=== PATIENT | male | born 1965 | race Caucasian/White ===

== ENCOUNTER 2020-12-12 12:47 | Inpatient (IN) ==
[2020-12-12] MEDS ORDERED: *HR* LORazepam 2 MG/ML VIAL IVP PRN ×3 (16:07)
[2020-12-12] MEDS ORDERED: Ondansetron 4 MG/2 ML VIAL IVP PRN (16:08)
[2020-12-12] MEDS ORDERED: Acetaminophen 325 MG TABLET PO PRN (16:08)
[2020-12-12] MEDS ORDERED: Naloxone 0.4 MG/ML INJ IVP PRN (16:08)
[2020-12-12] MEDS ORDERED: MOM Conc 10 ML UD.LIQ PO PRN (16:08)
[2020-12-12] MEDS ORDERED: Melatonin 3 MG TABLET PO PRN (16:08)
[2020-12-12] MEDS ORDERED: Mag Hydrox/Al Hydrox/Simeth 30 ML UDC PO PRN (16:08)
[2020-12-12] MEDS ORDERED: Perflutren Lipid Microsphere 1.3 ML in 0.9 % Sodium Chloride 8.7 ML IVP PRN (16:11)
[2020-12-12] MEDS: niCARdipine 20 MG/200 ML MLS IVC SCH ×4 (16:19→23:02)
[2020-12-12 16:51] LABS: Troponin I 0.06 ng/mL (< 0.04)
[2020-12-12 17:13] LABS: BUN/Creatinine Ratio 9 (6-26); Blood Urea Nitrogen 9 mg/dL (6-20); Calcium 9.1 mg/dL (8.6-10.3); Carbon Dioxide 26 mEq/L (23-29); Chloride 94 mEq/L (98-107); Glucose 136 mg/dL (70-105); Osmolality,Calculated 275 (280-300); Potassium 3.3 mEq/L (3.5-5.1); Sodium 132 mEq/L (136-145); eGFR For African Americans > 60 (> 60); eGFR For Non-African Americans > 60 (> 60)
[2020-12-13 01:21] LABS: Basophils % 0.4 %; Eosinophils # 0.1 K/mcL (0.0-0.6); Eosinophils % 1.5 %; Hematocrit 39.4 % (37.5-50.1); Hemoglobin 14.4 g/dL (12.9-16.9); Immature Granulocytes % 0.3 % (0-4); Lymphocytes # 1.2 K/mcL (0.6-4.6); Lymphocytes % 14.6 %; Mean Corpuscular HGB Conc 36.5 g/dL (31.6-35.5); Mean Corpuscular Hemoglobin 32.2 pg (28.0-33.3); Mean Corpuscular Volume 88.1 fL (83.0-100.0); Mean Platelet Volume 10.6 fL (9.4-12.4); Monocytes # 1.2 K/mcL (0.0-1.3); Monocytes % 15.4 %; Neutrophils # 5.4 K/mcL (1.6-8.9); Platelet Count 187 K/mcL (140-400); Red Blood Count 4.47 M/mcL (4.19-5.50); Red Cell Distribution Width 11.7 % (11.5-14.5); Segmented Neutrophils % 67.8 %
[2020-12-13 01:38] LABS: Alanine Aminotransferase 10 Units/L (7-52); Albumin/Globulin Ratio 1.5 (1.1-2.2); Alkaline Phosphatase 49 Units/L (34-104); Aspartate Amino Transferase 13 Units/L (13-39); BUN/Creatinine Ratio 12 (6-26); Bilirubin,Direct 0.1 mg/dL (0.0-0.2); Bilirubin,Indirect 0.5 mg/dL (0.0-1.0); Bilirubin,Total 0.6 mg/dL (0.3-1.0); Blood Urea Nitrogen 12 mg/dL (6-20); Calcium 8.7 mg/dL (8.6-10.3); Carbon Dioxide 25 mEq/L (23-29); Chloride 97 mEq/L (98-107); Chol/HDL Ratio 2.8 (0-4.9); Cholesterol 199 mg/dL (< 200); Globulin 2.7 g/dL (2.4-3.5); Glucose 130 mg/dL (70-105); HDL Cholesterol 72 mg/dL (40-59); LDL Cholesterol,Calculated 117 mg/dL (< 100); Magnesium 1.8 mg/dL (1.6-2.6); Osmolality,Calculated 276 (280-300); Potassium 3.2 mEq/L (3.5-5.1); Sodium 132 mEq/L (136-145); Total Protein 6.7 g/dL (6.4-8.9); Triglycerides 52 mg/dL (< 150); eGFR For African Americans > 60 (> 60); eGFR For Non-African Americans > 60 (> 60)
[2020-12-13 01:51] LABS: Thyroid Stimulating Hormone 2.788 mcIU/mL (0.340-5.600)
[2020-12-13 02:35] LABS: Estimated Average Glucose 85 mg/dl; Hemoglobin A1C 4.6 %
[2020-12-13] MEDS: niCARdipine 20 MG/200 ML MLS IVC SCH ×7 (02:35→22:20)
[2020-12-13] MEDS: Vitamin B Complex/Vit C/Vit E 1 EACH TABLET PO SCH (07:32)
[2020-12-13] MEDS: Folic Acid 1 MG TABLET PO SCH (07:32)
[2020-12-13] MEDS: Thiamine (B-1) 100 MG TABLET PO SCH (07:32)
[2020-12-13] MEDS ORDERED: amLODIPine 5 MG TABLET PO SCH (09:00)
[2020-12-13] MEDS: Aspirin Enteric Coated 81 MG Tablet PO SCH (09:18)
[2020-12-13] MEDS ORDERED: amLODIPine 5 MG TABLET PO ONE (12:08)
[2020-12-13] MEDS ORDERED: *HR* LORazepam 2 MG/ML VIAL IVP ONE (16:55)
[2020-12-14] MEDS: niCARdipine 20 MG/200 ML MLS IVC SCH ×8 (01:49→16:49)
[2020-12-14 06:46] LABS: BUN/Creatinine Ratio 10 (6-26); Blood Urea Nitrogen 10 mg/dL (6-20); Calcium 8.9 mg/dL (8.6-10.3); Carbon Dioxide 26 mEq/L (23-29); Chloride 101 mEq/L (98-107); Glucose 105 mg/dL (70-105); Osmolality,Calculated 277 (280-300); Potassium 3.4 mEq/L (3.5-5.1); Sodium 134 mEq/L (136-145); eGFR For African Americans > 60 (> 60); eGFR For Non-African Americans > 60 (> 60)
[2020-12-14] MEDS: Vitamin B Complex/Vit C/Vit E 1 EACH TABLET PO SCH (07:21)
[2020-12-14] MEDS: Folic Acid 1 MG TABLET PO SCH (07:21)
[2020-12-14] MEDS: Thiamine (B-1) 100 MG TABLET PO SCH (07:21)
[2020-12-14] MEDS: Aspirin Enteric Coated 81 MG Tablet PO SCH (07:21)
[2020-12-14] MEDS: amLODIPine 5 MG TABLET PO SCH (07:22)
[2020-12-14] MEDS ORDERED: lisinopriL 10 MG TABLET PO SCH (09:00)
[2020-12-14] MEDS ORDERED: *HR* LORazepam 2 MG/ML VIAL IVP ONE (16:55)
[2020-12-14] MEDS: niCARdipine 40 MG/200 ML MLS IVC SCH ×2 (18:18→21:31)
[2020-12-15] MEDS: niCARdipine 40 MG/200 ML MLS IVC SCH ×4 (01:02→18:06)
[2020-12-15 06:24] LABS: BUN/Creatinine Ratio 11 (6-26); Blood Urea Nitrogen 11 mg/dL (6-20); Calcium 9.1 mg/dL (8.6-10.3); Carbon Dioxide 25 mEq/L (23-29); Chloride 103 mEq/L (98-107); Glucose 101 mg/dL (70-105); Magnesium 1.7 mg/dL (1.6-2.6); Osmolality,Calculated 280 (280-300); Potassium 3.7 mEq/L (3.5-5.1); Sodium 135 mEq/L (136-145); eGFR For African Americans > 60 (> 60); eGFR For Non-African Americans > 60 (> 60)
[2020-12-15 07:44] LABS: Bilirubin,Urine Negative (Negative); Blood,Urine Negative (Negative); Clarity,Urine Clear (Clear); Color,Urine Colorless (Yellow); Glucose,Urine (UA) Normal (Normal); Ketones,Urine Negative (Negative); Leukocyte Esterase,Urine Negative (Negative); Nitrite,Urine Negative (Negative); PH,Urine 6.5 pH Units (5.0-8.0); Protein,Urine Negative (Neg-Trace); Specific Gravity,Urine 1.008 (1.010-1.025); Urobilinogen,Urine Normal (Normal)
[2020-12-15 07:55] LABS: Sodium, Urine 102.3 mEq/L
[2020-12-15] MEDS: Aspirin Enteric Coated 81 MG Tablet PO SCH (08:50)
[2020-12-15] MEDS: Vitamin B Complex/Vit C/Vit E 1 EACH TABLET PO SCH (08:50)
[2020-12-15] MEDS: Folic Acid 1 MG TABLET PO SCH (08:50)
[2020-12-15] MEDS: Thiamine (B-1) 100 MG TABLET PO SCH (08:50)
[2020-12-15] MEDS: amLODIPine 5 MG TABLET PO SCH (08:50)
[2020-12-15] MEDS: carvediloL 25 MG TABLET PO SCH ×2 (08:50→16:58)
[2020-12-16 02:05] LABS: BUN/Creatinine Ratio 13 (6-26); Blood Urea Nitrogen 15 mg/dL (6-20); Calcium 8.8 mg/dL (8.6-10.3); Carbon Dioxide 26 mEq/L (23-29); Chloride 103 mEq/L (98-107); Glucose 111 mg/dL (70-105); Osmolality,Calculated 280 (280-300); Potassium 3.6 mEq/L (3.5-5.1); Sodium 134 mEq/L (136-145); eGFR For African Americans > 60 (> 60); eGFR For Non-African Americans > 60 (> 60)
[2020-12-16] MEDS: Thiamine (B-1) 100 MG TABLET PO SCH (07:12)
[2020-12-16] MEDS: Vitamin B Complex/Vit C/Vit E 1 EACH TABLET PO SCH (07:12)
[2020-12-16] MEDS: Folic Acid 1 MG TABLET PO SCH (07:12)
[2020-12-16] MEDS: Aspirin Enteric Coated 81 MG Tablet PO SCH (07:12)
[2020-12-16] MEDS: carvediloL 25 MG TABLET PO SCH (07:12)
[2020-12-16] MEDS: amLODIPine 5 MG TABLET PO SCH (07:12)
[2020-12-16 11:09] VITALS: BP 164/96
== END 2020-12-16 14:06 | disposition home or self-care (01) | DRG 305 ==
LOC: 2NNU → SUATTDRO 15:32
PROVIDERS: ADMIT Internal Medicine; ATTEND Internal Medicine

== ENCOUNTER 2021-03-14 16:02 | Inpatient (IN) ==
[2021-03-14 16:59] LABS: Basophils % 0.1 %; Lymphocytes % 5.5 %
[2021-03-14 17:00] LABS: Hematocrit 35.4 % (37.5-50.1); Hemoglobin 13.7 g/dL (12.9-16.9); Immature Granulocytes % 0.7 % (0-4); Lymphocytes # 0.8 K/mcL (0.6-4.6); Mean Corpuscular Hemoglobin 32.5 pg (28.0-33.3); Mean Corpuscular Volume 83.9 fL (83.0-100.0); Mean Platelet Volume 10.1 fL (9.4-12.4); Monocytes # 0.9 K/mcL (0.0-1.3); Monocytes % 6.1 %; Neutrophils # 12.3 K/mcL (1.6-8.9); Platelet Count 220 K/mcL (140-400); Red Blood Count 4.22 M/mcL (4.19-5.50); Red Cell Distribution Width 12.2 % (11.5-14.5); Segmented Neutrophils % 87.6 %
[2021-03-14] MEDS ORDERED: 0.9 % Sodium Chloride 1,000 ML IVC ONE (17:19)
[2021-03-14] MEDS ORDERED: Thiamine (B-1) 100 MG, Folic Acid 1 MG, MVI, adult with vitamin K 10 ML in 0.9 % Sodi... IVPB ONE (17:30)
[2021-03-14 17:55] LABS: Bacteria,Urine Few per hpf (None-Few); Bilirubin,Urine Negative (Negative); Blood,Urine Small (Negative); Clarity,Urine Clear (Clear); Color,Urine Yellow (Yellow); Glucose,Urine (UA) Normal (Normal); Hyaline Casts,Urine Few per lpf (None Seen); Ketones,Urine Negative (Negative); Leukocyte Esterase,Urine Negative (Negative); Mucus,Urine Few per lpf (None-Few); Nitrite,Urine Negative (Negative); PH,Urine 6.5 pH Units (5.0-8.0); Protein,Urine Trace mg/dL (Neg-Trace); Specific Gravity,Urine 1.019 (1.010-1.025); Urobilinogen,Urine Normal (Normal); WBC,Urine 0-3 per hpf (0-3)
[2021-03-14 17:59] LABS: Alanine Aminotransferase 203 Units/L (7-52); Albumin 3.2 g/dL (3.5-5.7); Alkaline Phosphatase 159 Units/L (34-104); Aspartate Amino Transferase 335 Units/L (13-39); BUN/Creatinine Ratio 10 (6-26); Bilirubin,Direct 3.2 mg/dL (0.0-0.2); Bilirubin,Indirect 2.7 mg/dL (0.0-1.0); Bilirubin,Total 5.9 mg/dL (0.3-1.0); Blood Urea Nitrogen 13 mg/dL (6-20); Calcium 8.5 mg/dL (8.6-10.3); Carbon Dioxide 20 mEq/L (23-29); Chloride 65 mEq/L (98-107); Ethanol 43 mg/dL (Less than 10); Globulin 3.1 g/dL (2.4-3.5); Glucose 94 mg/dL (70-105); Lipase 181 Units/L (11-82); Osmolality,Calculated 212 (280-300); Potassium 4.3 mEq/L (3.5-5.1); Sodium 101 mEq/L (136-145); Total Protein 6.3 g/dL (6.4-8.9); Troponin I 0.04 ng/mL (< 0.04); eGFR For African Americans > 60 (> 60); eGFR For Non-African Americans 55 (> 60)
[2021-03-14 18:02] LABS: Amphetamine Screen,Urine Negative ng/mL (Cutoff=1000); Barbiturate Screen,Urine Negative ng/mL (Cutoff=200); Benzodiazepines Screen,Urine Negative ng/mL (Cutoff=200); Cannabinoid Screen,Urine Negative ng/mL (Cutoff = 50); Cocaine Screen,Urine Negative ng/mL (Cutoff= 300); Opiate Screen,Urine Negative ng/mL (Cutoff=300); Phencyclidine Screen,Urine Negative ng/mL (Cutoff=25)
[2021-03-14] MEDS ORDERED: Isovue-370 500 ML BOTTLE IVP ONE (18:20)
[2021-03-14 18:42] LABS: INR 1.4; Prothrombin Time 15.4 Seconds (9.4-12.1)
[2021-03-14 18:42] LABS: Mean Corpuscular HGB Conc 38.7 g/dL (31.6-35.5)
[2021-03-14 20:44] LABS: VBG HCO3 20 mEq/L (21-27); VBG PCO2 25 mmHg (41-51); VBG PH 7.52 pH Units (7.32-7.42); VBG PO2 90 mmHg (25-50)
[2021-03-15] MEDS ORDERED: Pantoprazole 80 MG in 0.9 % Sodium Chloride 50 ML IVPB ONE (01:41)
[2021-03-15] MEDS ORDERED: Naloxone 0.4 MG/ML INJ IVP PRN (01:54)
[2021-03-15] MEDS ORDERED: Piperacillin/Tazobactam 3.375 GM in 0.9 % Sodium Chloride Mini Bag 100 ML IVPB SCH (02:07)
[2021-03-15] MEDS ORDERED: *HR* LORazepam 2 MG/ML VIAL IVP PRN ×2 (03:34)
[2021-03-15] MEDS ORDERED: 0.9 % Sodium Chloride 1,000 ML IVC SCH (03:45)
[2021-03-15] MEDS: *HR* Heparin 5,000 UNIT/ML VIAL SQ SCH ×3 (06:11→17:58)
[2021-03-15] MEDS: Piperacillin/Tazobactam 3.375 GM in 0.9 % Sodium Chloride Mini Bag 100 ML IVPB SCH ×3 (06:12→21:44)
[2021-03-15 07:12] LABS: Troponin I 0.05 ng/mL (< 0.04)
[2021-03-15 07:13] LABS: Alanine Aminotransferase 152 Units/L (7-52); Albumin 2.7 g/dL (3.5-5.7); Albumin/Globulin Ratio 1.2 (1.1-2.2); Alkaline Phosphatase 157 Units/L (34-104); Aspartate Amino Transferase 263 Units/L (13-39); BUN/Creatinine Ratio 9 (6-26); Bilirubin,Indirect 2.6 mg/dL (0.0-1.0); Bilirubin,Total 6.6 mg/dL (0.3-1.0); Blood Urea Nitrogen 12 mg/dL (6-20); Calcium 7.6 mg/dL (8.6-10.3); Carbon Dioxide 23 mEq/L (23-29); Chloride 75 mEq/L (98-107); Globulin 2.3 g/dL (2.4-3.5); Glucose 76 mg/dL (70-105); Osmolality,Calculated 223 (280-300); Potassium 4.1 mEq/L (3.5-5.1); Sodium 107 mEq/L (136-145); eGFR For African Americans > 60 (> 60); eGFR For Non-African Americans 58 (> 60)
[2021-03-15 07:25] LABS: Thyroid Stimulating Hormone 0.766 mcIU/mL (0.340-5.600)
[2021-03-15] MEDS: *HR* LORazepam 2 MG/ML VIAL IVP PRN ×2 (08:19→22:27)
[2021-03-15] MEDS: Folic Acid 1 MG TABLET PO SCH (08:20)
[2021-03-15 08:44] LABS: INR 1.3
[2021-03-15] MEDS: Thiamine (B-1) 100 MG in 0.9 % Sodium Chloride 50 ML IVPB SCH (09:13)
[2021-03-15] MEDS ORDERED: D5% in Water 1,000 ML IVC SCH (10:00)
[2021-03-15 10:09] LABS: Basophils % 0.1 %; Eosinophils % 0.1 %; Hematocrit 29.6 % (37.5-50.1); Hemoglobin 11.1 g/dL (12.9-16.9); Immature Granulocytes % 0.6 % (0-4); Lymphocytes # 1.4 K/mcL (0.6-4.6); Mean Corpuscular HGB Conc 37.5 g/dL (31.6-35.5); Mean Corpuscular Hemoglobin 32.2 pg (28.0-33.3); Mean Corpuscular Volume 85.8 fL (83.0-100.0); Mean Platelet Volume 10.6 fL (9.4-12.4); Monocytes # 1.1 K/mcL (0.0-1.3); Monocytes % 6.9 %; Platelet Count 144 K/mcL (140-400); Red Blood Count 3.45 M/mcL (4.19-5.50); Red Cell Distribution Width 12.4 % (11.5-14.5); Segmented Neutrophils % 83.3 %; White Blood Count 15.5 K/mcL (4.3-11.1)
[2021-03-15 10:15] LABS: Hepatitis B Surface Antigen Nonreactive (Nonreactive)
[2021-03-15] MEDS: Dexmedetomidine HCl 400 MCG/100 ML MLS IVC SCH (10:33)
[2021-03-15 10:44] LABS: Hepatitis C Virus Antibody Nonreactive (Nonreactive)
[2021-03-15 10:45] LABS: Hepatitis B Core IgM Nonreactive (Nonreactive)
[2021-03-15 10:46] LABS: Hepatitis A Antibody IgM Nonreactive (Nonreactive)
[2021-03-15] MEDS: *HR* LORazepam 2 MG/ML VIAL IVP SCH ×3 (12:05→19:23)
[2021-03-15] MEDS ORDERED: D5% in Water 500 ML IVC SCH (20:15)
[2021-03-15] MEDS ORDERED: 0.9 % Sodium Chloride 500 ML IVC SCH (23:15)
[2021-03-16] MEDS: *HR* LORazepam 2 MG/ML VIAL IVP SCH ×6 (02:01→19:45)
[2021-03-16] MEDS: *HR* LORazepam 2 MG/ML VIAL IVP PRN (02:01)
[2021-03-16] MEDS: Dexmedetomidine HCl 400 MCG/100 ML MLS IVC SCH (02:03)
[2021-03-16] MEDS ORDERED: 0.9 % Sodium Chloride 500 ML IVC SCH ×2 (03:07→08:00)
[2021-03-16 04:35] LABS: VBG Ionized Calcium 1.03 mmol/L (1.15-1.35)
[2021-03-16 04:58] LABS: Basophils % 0.1 %; Mean Platelet Volume 10.3 fL (9.4-12.4)
[2021-03-16 05:00] LABS: Eosinophils % 0.3 %; Hematocrit 29.2 % (37.5-50.1); Hemoglobin 10.9 g/dL (12.9-16.9); Immature Granulocytes % 1.3 % (0-4); Immature Platelets 8.3 % (1.1-6.1); Lymphocytes # 0.8 K/mcL (0.6-4.6); Lymphocytes % 5.1 %; Mean Corpuscular Hemoglobin 32.2 pg (28.0-33.3); Mean Corpuscular Volume 86.4 fL (83.0-100.0); Monocytes # 0.8 K/mcL (0.0-1.3); Monocytes % 5.5 %; Nucleated Red Blood Cells 0.1 /100 WBC (0); Platelet Count 134 K/mcL (140-400); Red Blood Count 3.38 M/mcL (4.19-5.50); Red Cell Distribution Width 12.4 % (11.5-14.5); Segmented Neutrophils % 87.7 %; White Blood Count 14.8 K/mcL (4.3-11.1)
[2021-03-16 05:32] LABS: Albumin 2.2 g/dL (3.5-5.7); Albumin/Globulin Ratio 0.9 (1.1-2.2); Bilirubin,Direct 5.7 mg/dL (0.0-0.2); Bilirubin,Indirect 3.1 mg/dL (0.0-1.0); Bilirubin,Total 8.8 mg/dL (0.3-1.0); Globulin 2.4 g/dL (2.4-3.5); Magnesium 1.8 mg/dL (1.6-2.6); Total Protein 4.6 g/dL (6.4-8.9)
[2021-03-16 05:41] LABS: Potassium 3.8 mEq/L (3.5-5.1)
[2021-03-16] MEDS: Piperacillin/Tazobactam 3.375 GM in 0.9 % Sodium Chloride Mini Bag 100 ML IVPB SCH ×2 (06:09→15:08)
[2021-03-16] MEDS: *HR* Heparin 5,000 UNIT/ML VIAL SQ SCH ×2 (06:12→16:27)
[2021-03-16] MEDS ORDERED: Calcium Gluconate 1gm/50mL 1 GM/50 ML BAG IVPB PRN (06:27)
[2021-03-16 06:56] LABS: Mean Corpuscular HGB Conc 37.3 g/dL (31.6-35.5)
[2021-03-16 07:12] LABS: Troponin I 0.05 ng/mL (< 0.04)
[2021-03-16] MEDS: Pantoprazole 40 MG VIAL IVP SCH (08:52)
[2021-03-16] MEDS: Folic Acid 1 MG TABLET PO SCH (08:52)
[2021-03-16] MEDS: Thiamine (B-1) 100 MG in 0.9 % Sodium Chloride 50 ML IVPB SCH (08:54)
[2021-03-16] MEDS: Albumin Human 5% 12.5 GM/250 ML IV.SOLN IVC SCH ×2 (10:15→15:08)
[2021-03-16] MEDS: Calcium Gluconate 1gm/50mL 1 GM/50 ML BAG IVPB SCH ×2 (15:05→17:30)
[2021-03-16] MEDS: Norepinephrine 4 MG/254 ML IV.SOLN IVC SCH ×2 (15:06→20:17)
[2021-03-17] MEDS: *HR* LORazepam 2 MG/ML VIAL IVP SCH ×6 (00:11→20:28)
[2021-03-17] MEDS: Norepinephrine 4 MG/254 ML IV.SOLN IVC SCH ×3 (00:41→13:04)
[2021-03-17] MEDS: Piperacillin/Tazobactam 3.375 GM in 0.9 % Sodium Chloride Mini Bag 100 ML IVPB SCH ×3 (02:22→18:25)
[2021-03-17 03:20] LABS: Albumin 2.6 g/dL (3.5-5.7); Albumin/Globulin Ratio 1.2 (1.1-2.2); Bilirubin,Direct 5.9 mg/dL (0.0-0.2); Bilirubin,Indirect 2.9 mg/dL (0.0-1.0); Bilirubin,Total 8.8 mg/dL (0.3-1.0); Calcium 6.9 mg/dL (8.6-10.3); Globulin 2.1 g/dL (2.4-3.5); Potassium 3.6 mEq/L (3.5-5.1); Total Protein 4.7 g/dL (6.4-8.9)
[2021-03-17] MEDS ORDERED: 0.9 % Sodium Chloride 500 ML IVC SCH (03:22)
[2021-03-17] MEDS: *HR* Heparin 5,000 UNIT/ML VIAL SQ SCH ×2 (04:30→18:26)
[2021-03-17 05:58] LABS: Mean Platelet Volume 11.1 fL (9.4-12.4); Platelet Count 136 K/mcL (140-400)
[2021-03-17 06:00] LABS: Hematocrit 24.5 % (37.5-50.1); Hemoglobin 9.1 g/dL (12.9-16.9); Mean Corpuscular Hemoglobin 32.4 pg (28.0-33.3); Mean Corpuscular Volume 87.2 fL (83.0-100.0); Nucleated Red Blood Cells 0.1 /100 WBC (0); Red Blood Count 2.81 M/mcL (4.19-5.50); Red Cell Distribution Width 12.6 % (11.5-14.5)
[2021-03-17 06:03] LABS: Calcium 6.8 mg/dL (8.6-10.3); Potassium 3.4 mEq/L (3.5-5.1)
[2021-03-17] MEDS: Potassium Chloride 40 MEQ/200 ML BAG IVPB PRN ×2 (06:25→08:48)
[2021-03-17 06:26] LABS: Mean Corpuscular HGB Conc 37.1 g/dL (31.6-35.5)
[2021-03-17] MEDS ORDERED: 0.9 % Sodium Chloride 1,000 ML IVC SCH ×3 (07:30→23:24)
[2021-03-17 07:53] LABS: Lymphocytes # 1.4 K/mcL (0.6-4.6); Monocytes # 0.7 K/mcL (0.0-1.3); Platelet Estimate Normal (Normal)
[2021-03-17] MEDS: Thiamine (B-1) 100 MG in 0.9 % Sodium Chloride 50 ML IVPB SCH (08:15)
[2021-03-17] MEDS: Pantoprazole 40 MG VIAL IVP SCH (08:16)
[2021-03-17] MEDS: Folic Acid 1 MG TABLET PO SCH (08:17)
[2021-03-17] MEDS: Dexmedetomidine HCl 400 MCG/100 ML MLS IVC SCH (08:17)
[2021-03-17 13:43] LABS: Bacteria,Urine Few per hpf (None-Few); Bilirubin,Urine Small (Negative); Blood,Urine Moderate (Negative); Clarity,Urine Ex.Turbid (Clear); Color,Urine Dark-Yellow (Yellow); Glucose,Urine (UA) Normal (Normal); Ketones,Urine Negative (Negative); Leukocyte Esterase,Urine Negative (Negative); Mucus,Urine Few per lpf (None-Few); Nitrite,Urine Negative (Negative); Protein,Urine 70 mg/dL (Neg-Trace); RBC,Urine 15-30 per hpf (0-3); Specific Gravity,Urine 1.019 (1.010-1.025); Urobilinogen,Urine Normal (Normal); WBC,Urine 15-30 per hpf (0-3)
[2021-03-17 14:14] LABS: Sodium, Urine 10.3 mEq/L
[2021-03-18] MEDS: *HR* LORazepam 2 MG/ML VIAL IVP SCH ×5 (00:32→18:02)
[2021-03-18] MEDS: Piperacillin/Tazobactam 3.375 GM in 0.9 % Sodium Chloride Mini Bag 100 ML IVPB SCH ×3 (02:16→18:02)
[2021-03-18] MEDS: *HR* Heparin 5,000 UNIT/ML VIAL SQ SCH ×2 (04:52→17:12)
[2021-03-18 05:16] LABS: % Iron Saturation 14 % (20-55); Creatine Kinase 170 Units/L (30-223); Iron 15 mcg/dL (65-175); Transferrin 76 mg/dL (203-362)
[2021-03-18 05:20] LABS: Albumin 2.3 g/dL (3.5-5.7); Bilirubin,Direct 3.9 mg/dL (0.0-0.2); Bilirubin,Indirect 2.1 mg/dL (0.0-1.0); Calcium 6.6 mg/dL (8.6-10.3); Globulin 2.3 g/dL (2.4-3.5); Potassium 3.5 mEq/L (3.5-5.1); Total Protein 4.6 g/dL (6.4-8.9)
[2021-03-18] MEDS ORDERED: 0.9 % Sodium Chloride 1,000 ML IVC SCH (05:28)
[2021-03-18 05:32] LABS: Hematocrit 21.1 % (37.5-50.1); Hemoglobin 7.8 g/dL (12.9-16.9); Mean Corpuscular Hemoglobin 33.1 pg (28.0-33.3); Mean Corpuscular Volume 89.4 fL (83.0-100.0); Mean Platelet Volume 10.4 fL (9.4-12.4); Nucleated Red Blood Cells 0.2 /100 WBC (0); Platelet Count 115 K/mcL (140-400); Red Blood Count 2.36 M/mcL (4.19-5.50); Red Cell Distribution Width 13.2 % (11.5-14.5); White Blood Count 10.9 K/mcL (4.3-11.1)
[2021-03-18 05:35] LABS: Eosinophils # 0.2 K/mcL (0.0-0.6); Hypochromasia Present (Not Present); Lymphocytes # 0.4 K/mcL (0.6-4.6); Monocytes # 0.7 K/mcL (0.0-1.3); Neutrophils # 9.4 K/mcL (1.6-8.9); Platelet Estimate Slight Decrease (Normal)
[2021-03-18] MEDS: Potassium Chloride 40 MEQ/200 ML BAG IVPB PRN (06:21)
[2021-03-18] MEDS: Dexmedetomidine HCl 400 MCG/100 ML MLS IVC SCH (08:28)
[2021-03-18] MEDS: Folic Acid 1 MG TABLET PO SCH (08:29)
[2021-03-18] MEDS: Pantoprazole 40 MG VIAL IVP SCH (08:30)
[2021-03-18] MEDS: Thiamine (B-1) 100 MG in 0.9 % Sodium Chloride 50 ML IVPB SCH (08:40)
[2021-03-18] MEDS ORDERED: Naloxone 0.4 MG/ML INJ IVP PRN (18:18)
[2021-03-18] MEDS ORDERED: *HR* LORazepam 2 MG/ML VIAL IVP PRN ×2 (18:18)
[2021-03-18] MEDS: 0.9 % Sodium Chloride 1,000 ML IVC SCH (18:30)
[2021-03-18] MEDS: *HR* LORazepam 2 MG/ML VIAL IVP PRN (23:56)
[2021-03-19] MEDS: Piperacillin/Tazobactam 3.375 GM in 0.9 % Sodium Chloride Mini Bag 100 ML IVPB SCH ×3 (02:13→18:29)
[2021-03-19 04:10] LABS: Alanine Aminotransferase 63 Units/L (7-52); Albumin 2.3 g/dL (3.5-5.7); Albumin/Globulin Ratio 0.9 (1.1-2.2); Alkaline Phosphatase 100 Units/L (34-104); Amylase 113 Units/L (29-103); Aspartate Amino Transferase 70 Units/L (13-39); BUN/Creatinine Ratio 13 (6-26); Bilirubin,Indirect 1.7 mg/dL (0.0-1.0); Bilirubin,Total 4.7 mg/dL (0.3-1.0); Blood Urea Nitrogen 17 mg/dL (6-20); Calcium 6.9 mg/dL (8.6-10.3); Carbon Dioxide 19 mEq/L (23-29); Chloride 98 mEq/L (98-107); Globulin 2.7 g/dL (2.4-3.5); Glucose 86 mg/dL (70-105); Lipase 315 Units/L (11-82); Osmolality,Calculated 261 (280-300); Potassium 3.6 mEq/L (3.5-5.1); Sodium 125 mEq/L (136-145); eGFR For African Americans > 60 (> 60); eGFR For Non-African Americans 54 (> 60)
[2021-03-19 05:44] LABS: Hematocrit 20.4 % (37.5-50.1); Hemoglobin 7.1 g/dL (12.9-16.9); Mean Corpuscular HGB Conc 34.8 g/dL (31.6-35.5); Mean Corpuscular Hemoglobin 32.7 pg (28.0-33.3); Mean Platelet Volume 9.8 fL (9.4-12.4); Platelet Count 147 K/mcL (140-400); Red Blood Count 2.17 M/mcL (4.19-5.50); Red Cell Distribution Width 13.5 % (11.5-14.5)
[2021-03-19] MEDS: *HR* Heparin 5,000 UNIT/ML VIAL SQ SCH ×2 (06:01→18:29)
[2021-03-19 07:04] LABS: Anisocytosis 1+ (Not Present); Lymphocytes # 1.7 K/mcL (0.6-4.6); Monocytes # 1.2 K/mcL (0.0-1.3); Neutrophils # 9.1 K/mcL (1.6-8.9); Platelet Estimate Normal (Normal)
[2021-03-19] MEDS ORDERED: Calcium Gluconate 1gm/50mL 1 GM/50 ML BAG IVPB ONE (07:38)
[2021-03-19] MEDS: 0.9 % Sodium Chloride 1,000 ML IVC SCH ×2 (09:17→23:52)
[2021-03-19] MEDS ORDERED: Gadolinium Contrast Agent (WT Based) IV PRN (09:42)
[2021-03-19] MEDS: Pantoprazole 40 MG VIAL IVP SCH (10:18)
[2021-03-19] MEDS: Thiamine (B-1) 100 MG in 0.9 % Sodium Chloride 50 ML IVPB SCH (10:30)
[2021-03-19] MEDS: Iron Polysaccharide Complex 150 MG CAPSULE PO SCH ×2 (11:13→11:36)
[2021-03-19] MEDS: Folic Acid 1 MG TABLET PO SCH (11:14)
[2021-03-19] MEDS ORDERED: Potassium Phosphate 44 MEQ in 0.9 % Sodium Chloride 250 ML IVPB ONE (11:41)
[2021-03-19] MEDS ORDERED: carvediloL 6.25 MG TABLET PO SCH (17:00)
[2021-03-19] MEDS: Aspirin Enteric Coated 81 MG Tablet PO SCH (18:59)
[2021-03-19] MEDS ORDERED: *HR* Metoprolol 5 MG/5 ML VIAL IVP ONE ×3 (20:41→23:33)
[2021-03-19] MEDS ORDERED: *HR* Heparin 5,000 UNIT/ML VIAL IVP PRN (21:01)
[2021-03-19] MEDS ORDERED: *HR* Heparin 5,000 UNIT/ML VIAL IVP ONE (21:01)
[2021-03-19 21:33] LABS: Hematocrit 20.4 % (37.5-50.1); Hemoglobin 7.3 g/dL (12.9-16.9); Mean Corpuscular HGB Conc 35.8 g/dL (31.6-35.5); Mean Corpuscular Hemoglobin 33.5 pg (28.0-33.3); Mean Corpuscular Volume 93.6 fL (83.0-100.0); Mean Platelet Volume 9.6 fL (9.4-12.4); Platelet Count 181 K/mcL (140-400); Red Blood Count 2.18 M/mcL (4.19-5.50); Red Cell Distribution Width 13.3 % (11.5-14.5); White Blood Count 15.8 K/mcL (4.3-11.1)
[2021-03-19 21:43] LABS: INR 1.3; Prothrombin Time 14.8 Seconds (9.4-12.1)
[2021-03-19 21:45] LABS: Heparin anti-factor XA UFH < 0.04 IU/mL (0.30-0.70)
[2021-03-19] MEDS: Heparin 25,000UNIT/250ML 1/2NS 25,000 UNIT/250 ML IV.SOLN IVC SCH (22:17)
[2021-03-20] MEDS: *HR* LORazepam 2 MG/ML VIAL IVP PRN (03:14)
[2021-03-20] MEDS: Piperacillin/Tazobactam 3.375 GM in 0.9 % Sodium Chloride Mini Bag 100 ML IVPB SCH ×3 (03:15→18:38)
[2021-03-20] MEDS ORDERED: *HR* Metoprolol 5 MG/5 ML VIAL IVP ONE (03:36)
[2021-03-20 06:35] LABS: Hematocrit 22.4 % (37.5-50.1); Hemoglobin 7.5 g/dL (12.9-16.9); Mean Corpuscular HGB Conc 33.5 g/dL (31.6-35.5); Mean Corpuscular Hemoglobin 32.3 pg (28.0-33.3); Mean Corpuscular Volume 96.6 fL (83.0-100.0); Mean Platelet Volume 9.7 fL (9.4-12.4); Platelet Count 200 K/mcL (140-400); Red Blood Count 2.32 M/mcL (4.19-5.50); Red Cell Distribution Width 13.5 % (11.5-14.5); White Blood Count 16.5 K/mcL (4.3-11.1)
[2021-03-20 06:49] LABS: Alanine Aminotransferase 57 Units/L (7-52); Albumin 2.6 g/dL (3.5-5.7); Alkaline Phosphatase 119 Units/L (34-104); Amylase 91 Units/L (29-103); Aspartate Amino Transferase 63 Units/L (13-39); BUN/Creatinine Ratio 14 (6-26); Bilirubin,Direct 1.8 mg/dL (0.0-0.2); Bilirubin,Indirect 1.3 mg/dL (0.0-1.0); Bilirubin,Total 3.1 mg/dL (0.3-1.0); Blood Urea Nitrogen 14 mg/dL (6-20); Calcium 7.6 mg/dL (8.6-10.3); Carbon Dioxide 18 mEq/L (23-29); Chloride 103 mEq/L (98-107); Globulin 2.6 g/dL (2.4-3.5); Glucose 92 mg/dL (70-105); Lipase 249 Units/L (11-82); Osmolality,Calculated 270 (280-300); Potassium 3.7 mEq/L (3.5-5.1); Sodium 130 mEq/L (136-145); Total Protein 5.2 g/dL (6.4-8.9); eGFR For African Americans > 60 (> 60); eGFR For Non-African Americans > 60 (> 60)
[2021-03-20 07:18] LABS: Eosinophils # 0.3 K/mcL (0.0-0.6); Lymphocytes # 2.6 K/mcL (0.6-4.6); Monocytes # 2.3 K/mcL (0.0-1.3); Neutrophils # 9.9 K/mcL (1.6-8.9); Platelet Estimate Normal (Normal)
[2021-03-20 07:19] LABS: Anisocytosis 1+ (Not Present)
[2021-03-20] MEDS ORDERED: DilTIAZem 50 MG in 0.9 % Sodium Chloride 40 ML IVC SCH (07:30)
[2021-03-20] MEDS: *HR* Heparin 5,000 UNIT/ML VIAL IVP PRN ×2 (07:46→22:14)
[2021-03-20 07:51] LABS: Magnesium 1.9 mg/dL (1.6-2.6); Phosphorous 2.5 mg/dL (2.7-4.5)
[2021-03-20] MEDS: Iron Polysaccharide Complex 150 MG CAPSULE PO SCH (07:59)
[2021-03-20] MEDS: Folic Acid 1 MG TABLET PO SCH (07:59)
[2021-03-20] MEDS: Aspirin Enteric Coated 81 MG Tablet PO SCH (07:59)
[2021-03-20] MEDS: Thiamine (B-1) 100 MG in 0.9 % Sodium Chloride 50 ML IVPB SCH (08:43)
[2021-03-20] MEDS: Calcium Gluconate 1gm/50mL 1 GM/50 ML BAG IVPB SCH ×2 (08:44→09:49)
[2021-03-20] MEDS: Pantoprazole 40 MG VIAL IVP SCH (08:44)
[2021-03-20] MEDS: 0.9 % Sodium Chloride 1,000 ML IVC SCH (11:04)
[2021-03-20 12:15] LABS: Estimated Average Glucose 82 mg/dl; Hemoglobin A1C 4.5 %
[2021-03-20] MEDS: DilTIAZem 50 MG/50 ML IV.SOLN IVC SCH ×3 (12:54→19:41)
[2021-03-20] MEDS: Heparin 25,000UNIT/250ML 1/2NS 25,000 UNIT/250 ML IV.SOLN IVC SCH (16:16)
[2021-03-20] MEDS: DilTIAZem 125 MG in 0.9 % Sodium Chloride 50 MG/100 ML IV.SOLN IVC SCH (22:45)
[2021-03-21] MEDS: 0.9 % Sodium Chloride 1,000 ML IVC SCH ×2 (00:33→14:21)
[2021-03-21] MEDS: *HR* LORazepam 2 MG/ML VIAL IVP PRN (03:23)
[2021-03-21 03:35] LABS: Hematocrit 20.1 % (37.5-50.1); Hemoglobin 6.8 g/dL (12.9-16.9); Mean Corpuscular HGB Conc 33.8 g/dL (31.6-35.5); Mean Corpuscular Volume 97.6 fL (83.0-100.0); Mean Platelet Volume 9.3 fL (9.4-12.4); Platelet Count 254 K/mcL (140-400); Red Blood Count 2.06 M/mcL (4.19-5.50); Red Cell Distribution Width 13.5 % (11.5-14.5); White Blood Count 20.6 K/mcL (4.3-11.1)
[2021-03-21] MEDS: Piperacillin/Tazobactam 3.375 GM in 0.9 % Sodium Chloride Mini Bag 100 ML IVPB SCH ×3 (03:42→17:14)
[2021-03-21] MEDS: *HR* Metoprolol 5 MG/5 ML VIAL IVP PRN (03:47)
[2021-03-21 04:02] LABS: Alanine Aminotransferase 54 Units/L (7-52); Albumin 2.4 g/dL (3.5-5.7); Albumin/Globulin Ratio 0.8 (1.1-2.2); Alkaline Phosphatase 123 Units/L (34-104); Amylase 87 Units/L (29-103); Aspartate Amino Transferase 55 Units/L (13-39); BUN/Creatinine Ratio 14 (6-26); Bilirubin,Direct 1.2 mg/dL (0.0-0.2); Bilirubin,Indirect 1.1 mg/dL (0.0-1.0); Bilirubin,Total 2.3 mg/dL (0.3-1.0); Blood Urea Nitrogen 13 mg/dL (6-20); Calcium 7.8 mg/dL (8.6-10.3); Carbon Dioxide 20 mEq/L (23-29); Chloride 105 mEq/L (98-107); Globulin 3.1 g/dL (2.4-3.5); Glucose 100 mg/dL (70-105); Lipase 207 Units/L (11-82); Osmolality,Calculated 278 (280-300); Potassium 3.2 mEq/L (3.5-5.1); Sodium 134 mEq/L (136-145); Total Protein 5.5 g/dL (6.4-8.9); eGFR For African Americans > 60 (> 60); eGFR For Non-African Americans > 60 (> 60)
[2021-03-21 04:16] LABS: Anisocytosis 1+ (Not Present); Lymphocytes # 1.2 K/mcL (0.6-4.6); Neutrophils # 17.3 K/mcL (1.6-8.9); Platelet Estimate Normal (Normal); Polychromasia 1+ (Not Present)
[2021-03-21] MEDS: DilTIAZem 125 MG in 0.9 % Sodium Chloride 50 MG/100 ML IV.SOLN IVC SCH ×2 (06:43→17:03)
[2021-03-21] MEDS: Folic Acid 1 MG TABLET PO SCH (07:38)
[2021-03-21] MEDS: Aspirin Enteric Coated 81 MG Tablet PO SCH (07:38)
[2021-03-21] MEDS: Iron Polysaccharide Complex 150 MG CAPSULE PO SCH (07:38)
[2021-03-21] MEDS: Pantoprazole 40 MG VIAL IVP SCH (07:51)
[2021-03-21] MEDS: Thiamine (B-1) 100 MG in 0.9 % Sodium Chloride 50 ML IVPB SCH (07:51)
[2021-03-21] MEDS: Heparin 25,000UNIT/250ML 1/2NS 25,000 UNIT/250 ML IV.SOLN IVC SCH ×2 (07:52→22:12)
[2021-03-21] MEDS ORDERED: 0.9 % Sodium Chloride 250 ML IVC SCH (11:45)
[2021-03-21] MEDS: *HR* Heparin 5,000 UNIT/ML VIAL IVP PRN (12:40)
[2021-03-22 00:10] LABS: Bilirubin,Urine Negative (Negative); Blood,Urine Moderate (Negative); Clarity,Urine Turbid (Clear); Color,Urine Yellow (Yellow); Glucose,Urine (UA) Normal (Normal); Ketones,Urine 20 mg/dL (Negative); Leukocyte Esterase,Urine Negative (Negative); Mucus,Urine Few per lpf (None-Few); Nitrite,Urine Negative (Negative); Protein,Urine 50 mg/dL (Neg-Trace); RBC,Urine 30-50 per hpf (0-3); Specific Gravity,Urine 1.017 (1.010-1.025); Squamous Epithelial Cell,Urine Few per hpf (None-Few)
[2021-03-22] MEDS: *HR* Metoprolol 5 MG/5 ML VIAL IVP PRN (00:32)
[2021-03-22] MEDS: DilTIAZem 125 MG in 0.9 % Sodium Chloride 50 MG/100 ML IV.SOLN IVC SCH ×3 (01:46→23:29)
[2021-03-22] MEDS: 0.9 % Sodium Chloride 1,000 ML IVC SCH ×2 (01:47→13:49)
[2021-03-22] MEDS: Piperacillin/Tazobactam 3.375 GM in 0.9 % Sodium Chloride Mini Bag 100 ML IVPB SCH ×3 (01:47→17:21)
[2021-03-22 03:04] LABS: Eosinophils # 0.2 K/mcL (0.0-0.6); Hematocrit 20.4 % (37.5-50.1); Hemoglobin 6.9 g/dL (12.9-16.9); Mean Corpuscular HGB Conc 33.8 g/dL (31.6-35.5); Mean Corpuscular Hemoglobin 32.9 pg (28.0-33.3); Mean Corpuscular Volume 97.1 fL (83.0-100.0); Mean Platelet Volume 9.1 fL (9.4-12.4); Nucleated Red Blood Cells 0.1 /100 WBC (0); Platelet Count 295 K/mcL (140-400); Red Cell Distribution Width 13.5 % (11.5-14.5); White Blood Count 19.5 K/mcL (4.3-11.1)
[2021-03-22 03:08] LABS: Monocytes # 1.4 K/mcL (0.0-1.3)
[2021-03-22 03:25] LABS: Alanine Aminotransferase 48 Units/L (7-52); Albumin 2.5 g/dL (3.5-5.7); Albumin/Globulin Ratio 0.9 (1.1-2.2); Alkaline Phosphatase 113 Units/L (34-104); Amylase 87 Units/L (29-103); Aspartate Amino Transferase 44 Units/L (13-39); BUN/Creatinine Ratio 15 (6-26); Bilirubin,Indirect 0.8 mg/dL (0.0-1.0); Bilirubin,Total 1.8 mg/dL (0.3-1.0); Blood Urea Nitrogen 14 mg/dL (6-20); Carbon Dioxide 21 mEq/L (23-29); Chloride 107 mEq/L (98-107); Globulin 2.8 g/dL (2.4-3.5); Glucose 119 mg/dL (70-105); Lipase 198 Units/L (11-82); Osmolality,Calculated 284 (280-300); Potassium 3.1 mEq/L (3.5-5.1); Sodium 136 mEq/L (136-145); Total Protein 5.3 g/dL (6.4-8.9); eGFR For African Americans > 60 (> 60); eGFR For Non-African Americans > 60 (> 60)
[2021-03-22] MEDS: Heparin 25,000UNIT/250ML 1/2NS 25,000 UNIT/250 ML IV.SOLN IVC SCH ×2 (04:35→10:02)
[2021-03-22 04:54] LABS: Lymphocytes # 2.7 K/mcL (0.6-4.6); Neutrophils # 15.2 K/mcL (1.6-8.9); Platelet Estimate Normal (Normal); Reactive Lymphocytes Present (Not Present)
[2021-03-22 04:55] LABS: Hypochromasia Present (Not Present)
[2021-03-22] MEDS ORDERED: Lidocaine -MPF 2% 5 ML VIAL ONE (08:12)
[2021-03-22] MEDS ORDERED: *HR* Propofol 200 MG/20 ML VIAL IVP ONE (08:12)
[2021-03-22] MEDS: Folic Acid 1 MG TABLET PO SCH (09:40)
[2021-03-22] MEDS: Iron Polysaccharide Complex 150 MG CAPSULE PO SCH (09:41)
[2021-03-22] MEDS: Aspirin Enteric Coated 81 MG Tablet PO SCH (09:41)
[2021-03-22] MEDS: Pantoprazole 40 MG VIAL IVP SCH ×2 (09:41→17:22)
[2021-03-22] MEDS: Thiamine (B-1) 100 MG in 0.9 % Sodium Chloride 50 ML IVPB SCH (09:44)
[2021-03-22 10:03] LABS: Hematocrit 23.5 % (37.5-50.1); Hemoglobin 7.9 g/dL (12.9-16.9)
[2021-03-22] MEDS: carvediloL 25 MG TABLET PO SCH ×2 (10:04→17:21)
[2021-03-22] MEDS ORDERED: Potassium Chloride Elixir 20 MEQ/15 ML UDC PO SCH (15:15)
[2021-03-22] MEDS ORDERED: Perflutren Lipid Microsphere 1.3 ML in 0.9 % Sodium Chloride 8.7 ML IVP PRN (16:17)
[2021-03-22] MEDS ORDERED: carvediloL 25 MG TABLET PO SCH (17:00)
[2021-03-23] MEDS: Heparin 25,000UNIT/250ML 1/2NS 25,000 UNIT/250 ML IV.SOLN IVC SCH ×2 (00:10→22:40)
[2021-03-23] MEDS: Piperacillin/Tazobactam 3.375 GM in 0.9 % Sodium Chloride Mini Bag 100 ML IVPB SCH ×3 (04:30→17:51)
[2021-03-23] MEDS: Pantoprazole 40 MG VIAL IVP SCH ×2 (04:36→16:07)
[2021-03-23 09:43] LABS: Basophils # 0.1 K/mcL (0.0-0.2); Basophils % 0.3 %; Eosinophils # 0.2 K/mcL (0.0-0.6); Eosinophils % 0.9 %; Hematocrit 24.5 % (37.5-50.1); Hemoglobin 8.2 g/dL (12.9-16.9); Immature Granulocytes % 6.2 % (0-4); Lymphocytes # 1.6 K/mcL (0.6-4.6); Lymphocytes % 8.8 %; Mean Corpuscular HGB Conc 33.5 g/dL (31.6-35.5); Mean Corpuscular Hemoglobin 32.7 pg (28.0-33.3); Mean Corpuscular Volume 97.6 fL (83.0-100.0); Mean Platelet Volume 9.2 fL (9.4-12.4); Monocytes % 5.9 %; Neutrophils # 13.8 K/mcL (1.6-8.9); Platelet Count 337 K/mcL (140-400); Red Blood Count 2.51 M/mcL (4.19-5.50); Red Cell Distribution Width 13.8 % (11.5-14.5); Segmented Neutrophils % 77.9 %; White Blood Count 17.7 K/mcL (4.3-11.1)
[2021-03-23 09:56] LABS: Alanine Aminotransferase 42 Units/L (7-52); Albumin 2.5 g/dL (3.5-5.7); Albumin/Globulin Ratio 0.9 (1.1-2.2); Alkaline Phosphatase 95 Units/L (34-104); Amylase 84 Units/L (29-103); Aspartate Amino Transferase 35 Units/L (13-39); BUN/Creatinine Ratio 14 (6-26); Bilirubin,Direct 0.6 mg/dL (0.0-0.2); Bilirubin,Indirect 0.8 mg/dL (0.0-1.0); Bilirubin,Total 1.4 mg/dL (0.3-1.0); Blood Urea Nitrogen 13 mg/dL (6-20); Carbon Dioxide 20 mEq/L (23-29); Chloride 108 mEq/L (98-107); Globulin 2.8 g/dL (2.4-3.5); Glucose 96 mg/dL (70-105); Lipase 190 Units/L (11-82); Osmolality,Calculated 282 (280-300); Potassium 3.2 mEq/L (3.5-5.1); Sodium 136 mEq/L (136-145); Total Protein 5.3 g/dL (6.4-8.9); eGFR For African Americans > 60 (> 60); eGFR For Non-African Americans > 60 (> 60)
[2021-03-23] MEDS: carvediloL 25 MG TABLET PO SCH ×2 (10:20→16:08)
[2021-03-23] MEDS: Folic Acid 1 MG TABLET PO SCH (10:20)
[2021-03-23] MEDS: amLODIPine 5 MG TABLET PO SCH (10:20)
[2021-03-23] MEDS: Aspirin Enteric Coated 81 MG Tablet PO SCH (10:20)
[2021-03-23] MEDS: Iron Polysaccharide Complex 150 MG CAPSULE PO SCH (14:24)
[2021-03-23] MEDS: Thiamine (B-1) 100 MG in 0.9 % Sodium Chloride 50 ML IVPB SCH (17:50)
[2021-03-24] MEDS: Piperacillin/Tazobactam 3.375 GM in 0.9 % Sodium Chloride Mini Bag 100 ML IVPB SCH ×3 (03:22→17:47)
[2021-03-24] MEDS: Pantoprazole 40 MG VIAL IVP SCH ×2 (04:50→17:46)
[2021-03-24 09:06] LABS: Hematocrit 25.3 % (37.5-50.1); Hemoglobin 8.3 g/dL (12.9-16.9); Mean Corpuscular HGB Conc 32.8 g/dL (31.6-35.5); Mean Corpuscular Hemoglobin 31.9 pg (28.0-33.3); Mean Corpuscular Volume 97.3 fL (83.0-100.0); Platelet Count 375 K/mcL (140-400); Red Cell Distribution Width 13.5 % (11.5-14.5); White Blood Count 15.3 K/mcL (4.3-11.1)
[2021-03-24 09:13] LABS: INR 1.5; Prothrombin Time 16.5 Seconds (9.4-12.1)
[2021-03-24 09:25] LABS: Alanine Aminotransferase 42 Units/L (7-52); Albumin 2.7 g/dL (3.5-5.7); Albumin/Globulin Ratio 0.9 (1.1-2.2); Alkaline Phosphatase 88 Units/L (34-104); Aspartate Amino Transferase 34 Units/L (13-39); BUN/Creatinine Ratio 13 (6-26); Bilirubin,Direct 0.6 mg/dL (0.0-0.2); Bilirubin,Indirect 0.7 mg/dL (0.0-1.0); Bilirubin,Total 1.3 mg/dL (0.3-1.0); Blood Urea Nitrogen 11 mg/dL (6-20); Calcium 8.1 mg/dL (8.6-10.3); Carbon Dioxide 22 mEq/L (23-29); Chloride 105 mEq/L (98-107); Globulin 3.1 g/dL (2.4-3.5); Glucose 108 mg/dL (70-105); Lipase 193 Units/L (11-82); Magnesium 1.6 mg/dL (1.6-2.6); Osmolality,Calculated 280 (280-300); Phosphorous 3.4 mg/dL (2.7-4.5); Sodium 135 mEq/L (136-145); Total Protein 5.8 g/dL (6.4-8.9); eGFR For African Americans > 60 (> 60); eGFR For Non-African Americans > 60 (> 60)
[2021-03-24 09:35] LABS: Lymphocytes # 1.2 K/mcL (0.6-4.6); Monocytes # 0.6 K/mcL (0.0-1.3); Neutrophils # 12.9 K/mcL (1.6-8.9); Platelet Estimate Normal (Normal)
[2021-03-24] MEDS: Aspirin Enteric Coated 81 MG Tablet PO SCH (10:11)
[2021-03-24] MEDS: amLODIPine 5 MG TABLET PO SCH (10:11)
[2021-03-24] MEDS: carvediloL 25 MG TABLET PO SCH ×2 (10:12→17:47)
[2021-03-24] MEDS: Folic Acid 1 MG TABLET PO SCH (10:12)
[2021-03-24] MEDS: Thiamine (B-1) 100 MG in 0.9 % Sodium Chloride 50 ML IVPB SCH (10:17)
[2021-03-24] MEDS: Iron Polysaccharide Complex 150 MG CAPSULE PO SCH (10:20)
[2021-03-24] MEDS: Heparin 25,000UNIT/250ML 1/2NS 25,000 UNIT/250 ML IV.SOLN IVC SCH (12:59)
[2021-03-25] MEDS: Piperacillin/Tazobactam 3.375 GM in 0.9 % Sodium Chloride Mini Bag 100 ML IVPB SCH ×2 (02:38→10:43)
[2021-03-25 02:45] LABS: Hematocrit 22.6 % (37.5-50.1); Hemoglobin 7.9 g/dL (12.9-16.9); Mean Corpuscular Hemoglobin 33.6 pg (28.0-33.3); Mean Corpuscular Volume 96.2 fL (83.0-100.0); Mean Platelet Volume 9.1 fL (9.4-12.4); Platelet Count 380 K/mcL (140-400); Red Blood Count 2.35 M/mcL (4.19-5.50); Red Cell Distribution Width 13.3 % (11.5-14.5); White Blood Count 12.8 K/mcL (4.3-11.1)
[2021-03-25 02:55] LABS: BUN/Creatinine Ratio 11 (6-26); Blood Urea Nitrogen 10 mg/dL (6-20); Calcium 7.8 mg/dL (8.6-10.3); Carbon Dioxide 21 mEq/L (23-29); Chloride 105 mEq/L (98-107); Glucose 105 mg/dL (70-105); Magnesium 1.5 mg/dL (1.6-2.6); Osmolality,Calculated 279 (280-300); Phosphorous 2.9 mg/dL (2.7-4.5); Potassium 3.4 mEq/L (3.5-5.1); Sodium 135 mEq/L (136-145); eGFR For African Americans > 60 (> 60); eGFR For Non-African Americans > 60 (> 60)
[2021-03-25] MEDS: Heparin 25,000UNIT/250ML 1/2NS 25,000 UNIT/250 ML IV.SOLN IVC SCH ×2 (03:18→19:15)
[2021-03-25] MEDS: Pantoprazole 40 MG VIAL IVP SCH (05:38)
[2021-03-25] MEDS ORDERED: Morphine Sulfate 2 MG/ML SYRINGE IVP ONE (05:42)
[2021-03-25] MEDS: Iron Polysaccharide Complex 150 MG CAPSULE PO SCH (07:51)
[2021-03-25] MEDS: Aspirin Enteric Coated 81 MG Tablet PO SCH (07:52)
[2021-03-25] MEDS: amLODIPine 5 MG TABLET PO SCH (07:52)
[2021-03-25] MEDS: Folic Acid 1 MG TABLET PO SCH (07:52)
[2021-03-25] MEDS: carvediloL 25 MG TABLET PO SCH ×2 (07:52→15:47)
[2021-03-25] MEDS: Magnesium Oxide 400 MG TABLET PO SCH (10:44)
[2021-03-25] MEDS: Thiamine (B-1) 100 MG in 0.9 % Sodium Chloride 50 ML IVPB SCH (11:53)
[2021-03-26] MEDS ORDERED: Calcium Gluconate 1gm/50mL 1 GM/50 ML BAG IVPB ONE (02:00)
[2021-03-26 04:16] LABS: VBG Ionized Calcium 1.15 mmol/L (1.15-1.35)
[2021-03-26 04:17] LABS: Basophils # 0.1 K/mcL (0.0-0.2); Basophils % 0.4 %; Eosinophils # 0.1 K/mcL (0.0-0.6); Eosinophils % 0.7 %; Hematocrit 23.6 % (37.5-50.1); Lymphocytes # 2.2 K/mcL (0.6-4.6); Lymphocytes % 17.8 %; Mean Corpuscular HGB Conc 33.9 g/dL (31.6-35.5); Mean Corpuscular Hemoglobin 32.8 pg (28.0-33.3); Mean Corpuscular Volume 96.7 fL (83.0-100.0); Mean Platelet Volume 9.6 fL (9.4-12.4); Monocytes # 0.8 K/mcL (0.0-1.3); Monocytes % 6.4 %; Platelet Count 438 K/mcL (140-400); Red Blood Count 2.44 M/mcL (4.19-5.50); Red Cell Distribution Width 13.2 % (11.5-14.5); Segmented Neutrophils % 72.7 %; White Blood Count 12.6 K/mcL (4.3-11.1)
[2021-03-26 04:34] LABS: BUN/Creatinine Ratio 10 (6-26); Blood Urea Nitrogen 8 mg/dL (6-20); Carbon Dioxide 21 mEq/L (23-29); Chloride 104 mEq/L (98-107); Glucose 76 mg/dL (70-105); Osmolality,Calculated 273 (280-300); Potassium 3.3 mEq/L (3.5-5.1); Sodium 133 mEq/L (136-145); eGFR For African Americans > 60 (> 60); eGFR For Non-African Americans > 60 (> 60)
[2021-03-26 04:36] LABS: BUN/Creatinine Ratio 10 (6-26); Blood Urea Nitrogen 8 mg/dL (6-20); Carbon Dioxide 21 mEq/L (23-29); Chloride 105 mEq/L (98-107); Glucose 105 mg/dL (70-105); Osmolality,Calculated 275 (280-300); Potassium 3.3 mEq/L (3.5-5.1); Sodium 133 mEq/L (136-145); eGFR For African Americans > 60 (> 60); eGFR For Non-African Americans > 60 (> 60)
[2021-03-26 04:39] LABS: Neutrophils # 9.2 K/mcL (1.6-8.9)
[2021-03-26 05:12] LABS: Anisocytosis 1+ (Not Present); Platelet Estimate Normal (Normal)
[2021-03-26 08:18] VITALS: TEMP 98.9
[2021-03-26] MEDS: carvediloL 25 MG TABLET PO SCH ×2 (08:23→16:51)
[2021-03-26] MEDS: Iron Polysaccharide Complex 150 MG CAPSULE PO SCH (08:23)
[2021-03-26] MEDS: Aspirin Enteric Coated 81 MG Tablet PO SCH (08:23)
[2021-03-26] MEDS: Folic Acid 1 MG TABLET PO SCH (08:23)
[2021-03-26] MEDS: amLODIPine 5 MG TABLET PO SCH (08:24)
[2021-03-26] MEDS: Magnesium Oxide 400 MG TABLET PO SCH (08:24)
[2021-03-26] MEDS: Heparin 25,000UNIT/250ML 1/2NS 25,000 UNIT/250 ML IV.SOLN IVC SCH (08:43)
[2021-03-26] MEDS ORDERED: Thiamine (B-1) 100 MG TABLET PO SCH (09:00)
[2021-03-26 16:29] VITALS: O2SAT 96
[2021-03-26 16:53] VITALS: BP 139/72; PULSE 101
[2021-03-26] MEDS ORDERED: Apixaban 5 MG TABLET PO SCH ×2 (18:30→21:00)
== END 2021-03-26 19:05 | disposition home health service (06) | DRG 871 ==
LOC: 2NNU 16:02 → EMEROOARM 16:02 → SUATTDRO 03-15 01:54 → OBSVTOIN 03-15 01:54 → 2NNU 03-15 04:53 → 2NENU 03-23 03:55
PROVIDERS: ADMIT Student in an Organized Health Care Education/Training Program; ATTEND Internal Medicine
PROC: ENDOEBX (2021-03-22 08:50)